=== PATIENT | male | born 1985 | race Caucasian/White ===

== ENCOUNTER 2024-12-19 21:43 | Emergency (ER) | payer OTHER ==
[~2024-12-19] VITALS: Ht 170.2 cm; Wt 70.3 kg
[2024-12-19] MEDS ORDERED: SIMETHICONE 80 MG TAB.CHEW ONE (22:32)
[2024-12-19] MEDS ORDERED: ONDANSETRON 4 MG TAB.RAPDIS ONE (22:32)
[2024-12-19] MEDS: SIMETHICONE 80 MG TAB.CHEW PO ONE (22:38)
[2024-12-19] MEDS: ONDANSETRON 4 MG TAB.RAPDIS SL ONE (22:38)
[2024-12-19] MEDS ORDERED: ONDA4TAB5 PO (22:52)
[2024-12-19 23:08] VITALS: BP 109/84; TEMP 98.5; O2SAT 94
== END 2024-12-19 23:08 | disposition home or self-care (01) ==
LOC: ER 21:48
DX: R11.2 Nausea with vomiting, unspecified (principal); K51.90 Ulcerative colitis, unspecified, without complications
CPT/HCPCS: 99283; Q0162